=== PATIENT | male | born 1990 | race Caucasian/White ===

== ENCOUNTER 2017-10-08 22:18 | Inpatient (IN) | payer MEDICAID ==
[~2017-10-08] VITALS: Ht 167.6 cm; Wt 77.1 kg
[2017-10-08 22:43] VITALS: Ht 167.6 cm; Wt 77.1 kg
[2017-10-08 23:30] LABS: CARBON DIOXIDE 31.1 mmol/L (21-32); CHLORIDE SERUM 104 mmol/L (98-107); CREATININE SERUM 0.8 mg/dL (0.7-1.3); GFR1 > 60 mL/min; GLUCOSE SERUM 106 mg/dL (74-106); POTASSIUM SERUM 3.8 mmol/L (3.5-5.1); SODIUM SERUM 142 mmol/L (136-145)
[2017-10-08 23:34] LABS: BASOPHIL % 0.4 % (0-2); PLATELET COUNT 269 x10^3mcL (130-400); RED CELL DISTRIBUTION WIDTH 12.6 % (11.5-14.5)
[2017-10-08 23:37] LABS: ALBUMIN 4.3 g/dL (3.4-5.0); ALKALINE PHOSPHATASE 91 U/L (46-116); ALT/SGPT 69 U/L (16-63); AST/SGOT 30 U/L (15-37); BILIRUBIN TOTAL 0.81 mg/dL (0.20-1.00); LIPASE 209 IU/L (73-393)
[2017-10-08 23:38] LABS: TOTAL PROTEIN, SERUM 8.3 g/dL (6.4-8.2)
[2017-10-09 02:51] VITALS: BP 129/78
[2017-10-09 03:08] LABS: CHOLESTEROL/HDL RATIO 4.5; MAGNESIUM 2.1 mg/dL (1.8-2.4); PHOSPHOROUS 5.4 mg/dL (2.5-4.9)
[2017-10-09 03:18] LABS: FREE T4 1.09 ng/dL (0.76-1.46); FREE THYROXINE INDEX 3.1 ug/dL (1.4-4.5); T4(THYROXINE) 8.5 ug/dL (4.7-13.3)
[2017-10-09 03:49] LABS: T3 TOTAL 1.22 ng/mL
[2017-10-09 05:30] VITALS: BP 111/61
[2017-10-09 09:08] LABS: AMPHETAMINE QUAL UR NONE DETECTED (NEG <=1000)
[2017-10-09 10:08] LABS: UA SPECIFIC GRAVITY 1.025 (1.005-1.035); microscopic required? YES; urine erythrocyte NEGATIVE (NEGATIVE)
[2017-10-09 11:11] VITALS: BP 108/59
[2017-10-09 13:41] VITALS: BP 120/77
[2017-10-09 17:36] VITALS: BP 117/68
[2017-10-09 21:48] VITALS: BP 97/52
[2017-10-10 05:45] VITALS: BP 92/46
[2017-10-10 07:26] LABS: BASOPHIL % 0.3 % (0-2); PLATELET COUNT 209 x10^3mcL (130-400); RED CELL DISTRIBUTION WIDTH 12.5 % (11.5-14.5)
[2017-10-10 07:42] LABS: CALCIUM 8.8 mg/dL (8.5-10.1); CARBON DIOXIDE 27.4 mmol/L (21-32); CHLORIDE SERUM 104 mmol/L (98-107); CREATININE SERUM 0.8 mg/dL (0.7-1.3); GFR1 > 60 mL/min; GLUCOSE SERUM 94 mg/dL (74-106); MAGNESIUM 1.9 mg/dL (1.8-2.4); PHOSPHOROUS 4.8 mg/dL (2.5-4.9); POTASSIUM SERUM 3.6 mmol/L (3.5-5.1); SODIUM SERUM 142 mmol/L (136-145)
[2017-10-10 09:26] VITALS: BP 122/72
[2017-10-10] MEDS ORDERED: NORCO1 TA2 PO (10:24)
[2017-10-10] MEDS ORDERED: COLACE100 MG PO (10:24)
[2017-10-10 12:55] VITALS: BP 122/72
== END 2017-10-10 13:18 | disposition home or self-care (01) | DRG 263 ==
LOC: ED 22:18 → DU 10-09 01:00 → MU 10-10 06:25
PROVIDERS: Emergency Medicine; Surgery; ADMIT Family Medicine
PROC: 0FT44ZZ Resection of Gallbladder, Percutaneous Endoscopic Approach (ICD-10-PCS; principal; 2017-10-09 08:30)
DX: K80.20 Calculus of gallbladder without cholecystitis without obstruction (principal); F17.210 Nicotine dependence, cigarettes, uncomplicated; R74.0 Nonspecific elevation of levels of transaminase and lactic acid dehydrogenase [LDH]; Z68.27 Body mass index [BMI] 27.0-27.9, adult
CPT/HCPCS: 83880; 84439; 94150; J0330; J0690; J1885; J2250; J2270; J2405; J2704; J2710; J3010; J3490; J7030; J7120; Q0092; Q0162

== ENCOUNTER 2020-07-18 21:23 | Emergency (ER) | payer MEDICAID ==
[~2020-07-18] VITALS: Ht 170.2 cm; Wt 78.2 kg
[~2020-07-18 21:23] MED LIST: COLACE100 MG PO; NORCO1 TA2 PO
[2020-07-18 21:34] VITALS: Ht 170.2 cm; Wt 78.2 kg
[2020-07-18 23:14] LABS: BASOPHIL % 0.7 % (0-2); PLATELET COUNT 258 x10^3mcL (130-400); RED CELL DISTRIBUTION WIDTH 12.5 % (11.5-14.5)
[2020-07-18 23:37] LABS: CARBON DIOXIDE 28.5 mmol/L (21-32); CHLORIDE SERUM 105 mmol/L (98-107); CREATININE SERUM 1.1 mg/dL (0.7-1.3); GFR1 > 60 mL/min; GLUCOSE SERUM 106 mg/dL (74-106); POTASSIUM SERUM 4.2 mmol/L (3.5-5.1); SODIUM SERUM 141 mmol/L (136-145)
[2020-07-18 23:49] LABS: ALBUMIN 4.2 g/dL (3.4-5.0); ALKALINE PHOSPHATASE 97 U/L (46-116); ALT/SGPT 105 U/L (16-63); AMYLASE 60 U/L (25-115); AST/SGOT 40 U/L (15-37); BILIRUBIN TOTAL 1.08 mg/dL (0.20-1.00); LIPASE 138 IU/L (73-393); TOTAL PROTEIN, SERUM 8.1 g/dL (6.4-8.2)
[2020-07-19 00:25] VITALS: BP 130/84
== END 2020-07-19 00:25 | disposition home or self-care (01) ==
LOC: ED 21:23
PROVIDERS: Emergency Medicine
DX: K21.9 Gastro-esophageal reflux disease without esophagitis (principal)
CPT/HCPCS: J3490